=== PATIENT | male | born 1955 | race Caucasian/White ===

== ENCOUNTER 2017-03-08 17:12 | Emergency (ER) | payer OTHER ==
[~2017-03-08] VITALS: Ht 167.6 cm; Wt 80.0 kg
[~2017-03-08 17:12] MED LIST: AMLO10 PO; ASPI81 PO; ATOR40TA49 PO; CLON.2 PO; HYDR100T2 PO; MAGN400 PO; PRAS10; PREV15CA20 PO
[2017-03-08 17:15] VITALS: BP 178/85; PULSE 70; RESP 15; TEMP 98; O2SAT 100
[2017-03-08] MEDS ORDERED: SODIUM CHLOR 0.9% 1000 ML INJ 1,000 ML IV ONE ×2 (17:26→18:45)
[2017-03-08] MEDS ORDERED: THIAMINE INJ 100 MG in SODIUM CHLORIDE 0.9% INJ 100 ML IV ONE (17:30)
[2017-03-08] MEDS ORDERED: SODIUM CHLORIDE 0.9% FLUSH 10 ML FLUSH IVF PRN (17:30)
[2017-03-08] MEDS ORDERED: ONDANSETRON HCL 4 MG/2 ML VIAL IVP ONE (17:30)
--- NOTE | 2017-03-08 17:47 | PD ---
HPI Chief Complaint: Intoxicated/Syncope Time Seen by Provider: 17:26 Travel History International Travel<30 days: No Contact w/Intl Traveler<30days: No History of Present Illness HPI 61-year-old male brought in by EMS status post unwitnessed fall and possible syncopal event at his place of residence. Patient is intoxicated. He was sitting on the front stoop of his rental unit when he was found fallen forward with abrasions to the left elbow. Patient is obviously intoxicated but does respond to voice commands and questions, although he thinks the current president is Luis. He is complaining of no pain, headache, or head trauma. He has no neck pain. The only visible trauma is to the left lateral elbow which is abrasion. He has normal movement in all extremities. He has no known drug allergies. He has a history of MRSA. Vital signs were stable via EMS. PFS Past Medical History Arthritis: Yes Atrial Fibrillation: Yes Anxiety: Yes Depression: No Cancer: No Cardiovascular Problems: Yes Endocrine: No Genitourinary: No Hypertension: Yes Musculoskeletal: Yes Neurologic: Yes Psychiatric: No Reproductive: No Respiratory: No Myocardial Infarction: Yes Social History Alcohol Use: Yes (OCC) Tobacco Use: Yes (/2 PPD) Substance Use: No Allergies-Medications (Allergen,Severity, Reaction): Coded Allergies: No Known Allergies (Unverified , 03/08/17) Reported Meds & Prescriptions Reported Meds & Active Scripts Active No Active Prescriptions or Reported Medications Review of Systems ROS Limitations: Intoxication Except as stated in HPI: all other systems reviewed are Neg General / Constitutional: No: Fever Eyes: No: Visual changes HENT: No: Headaches Cardiovascular: No: Chest Pain or Discomfort Respiratory: No: Shortness of Breath Gastrointestinal: No: Abdominal Pain Genitourinary: No: Dysuria Musculoskeletal: No: Pain Skin: No Rash Neurologic: No: Weakness Psychiatric: No: Depression Endocrine: No: Polydipsia Hematologic/Lymphatic: No: Easy Bruising Physical Exam Exam Limitations: Intoxication Narrative GENERAL: Patient is in no acute distress. He is intoxicated but cooperative and arousable. SKIN: Warm and dry. Normal color. Normal turgor. Patient has superficial abrasion to the left lateral elbow. There are no other visible abrasions or wounds. HEAD: Atraumatic. Normocephalic. Nontender. EYES: Pupils equal and round. No scleral icterus. No injection or drainage. ENT: No nasal bleeding or discharge. Mucous membranes pink and moist. No acute dental injury is noted. Pharynx is clear. Airway is patent. NECK: Trachea midline. No bony tenderness or step-off. Range of motion is full and supple without tenderness. CARDIOVASCULAR: Regular rate and rhythm. No murmurs gallops or rubs. RESPIRATORY: No accessory muscle use. Clear to auscultation. Breath sounds equal bilaterally. GASTROINTESTINAL: Abdomen soft, non-tender, nondistended. Hepatic and splenic margins not palpable. MUSCULOSKELETAL: Extremities without clubbing, cyanosis, or edema. No obvious deformities. NEUROLOGICAL: Awake and alert. No obvious cranial nerve deficits. Motor grossly within normal limits. Five out of 5 muscle strength in the arms and legs. Normal speech. Data Data Last Documented VS Vital Signs Date Time Temp Pulse Resp B/P (MAP) Pulse Ox O2 Delivery O2 Flow Rate FiO2 03/08/17 19:05 60 18 167/82 (110) 96 Room Air 03/08/17 17:15 98.0 Orders Orders Complete Blood Count With Diff (03/08/17 17:26) Comprehensive Metabolic Panel (03/08/17 17:26) Electrocardiogram (03/08/17 17:26) Oximetry (03/08/17 17:26) Iv Access Insert/Monitor (03/08/17 17:26) Ecg Monitoring (03/08/17 17:26) Alcohol (Ethanol) (03/08/17 17:26) Chest, Single Ap (03/08/17 17:26) Ct Brain W/O Iv Contrast(Rout) (03/08/17 17:26) Ondansetron Inj (Zofran Inj) (03/08/17 17:30) Sodium Chloride 0.9% Flush (Ns Flush) (03/08/17 17:30) Sodium Chlor 0.9% 1000 Ml Inj (Ns 1000 M (03/08/17 17:26) Thiamine Inj (Thiamine Inj) (03/08/17 17:30) Sodium Chlor 0.9% 1000 Ml Inj (Ns 1000 M (03/08/17 18:45) Potassium Chlor 20 Meq Premix (Kcl 20 Me (03/08/17 18:45) Labs Laboratory Tests Test 9/7/17 17:30 White Blood Count 4.8 TH/MM3 Red Blood Count 3.74 MIL/MM3 Hemoglobin 12.7 GM/DL Hematocrit 37.4 % Mean Corpuscular Volume 99.9 FL Mean Corpuscular Hemoglobin 34.0 PG Mean Corpuscular Hemoglobin Concent 34.0 % Red Cell Distribution Width 12.9 % Platelet Count 98 TH/MM3 Mean Platelet Volume 8.9 FL Neutrophils (%) (Auto) 46.1 % Lymphocytes (%) (Auto) 37.7 % Monocytes (%) (Auto) 11.7 % Eosinophils (%) (Auto) 3.9 % Basophils (%) (Auto) 0.6 % Neutrophils # (Auto) 2.2 TH/MM3 Lymphocytes # (Auto) 1.8 TH/MM3 Monocytes # (Auto) 0.6 TH/MM3 Eosinophils # (Auto) 0.2 TH/MM3 Basophils # (Auto) 0.0 TH/MM3 CBC Comment AUTO DIFF Differential Comment AUTO DIFF CONFIRMED Platelet Estimate LOW Platelet Morphology Comment NORMAL Blood Urea Nitrogen 17 MG/DL Creatinine 1.32 MG/DL Random Glucose 96 MG/DL Total Protein 6.8 GM/DL Albumin 3.7 GM/DL Calcium Level 7.5 MG/DL Alkaline Phosphatase 110 U/L Aspartate Amino Transf (AST/SGOT) 142 U/L Alanine Aminotransferase (ALT/SGPT) 58 U/L Total Bilirubin 0.2 MG/DL Sodium Level 144 MEQ/L Potassium Level 3.3 MEQ/L Chloride Level 109 MEQ/L Carbon Dioxide Level 25.2 MEQ/L Anion Gap 10 MEQ/L Estimat Glomerular Filtration Rate 55 ML/MIN Ethyl Alcohol Level 401 MG/DL [facility] Medical Decision Making Medical Screen Exam Complete: Yes Emergency Medical Condition: Yes Differential Diagnosis Acute intoxication. Unwitnessed possible syncopal episode. Fall. Left elbow abrasion. Narrative Course Patient appears medically stable at time of exam. Labs ordered including CBC, CMP, serum alcohol level. EKG and chest x-ray is ordered. CT of the head is ordered. IV access is obtained patient is given milligrams thiamine IV, 4 mg Zofran IV, and 1000 mL's normal saline bolus. Chest x-ray is normal. EKG shows normal sinus rhythm with atrial enlargement. No acute ST changes. This was reviewed with Dr. Santos. CBC shows a hemoglobin of 12.7, hematocrit of 37.4. CMP shows sodium 144, potassium 3.3Y9. Creatinine is 1.32, BUN 17 patient has an AST of 142, ALT of 58. Serum alcohol level is 401. Head CT is negative. Patient is intoxicated but medically stable. Patient discharged to the custody of his . Diagnosis Primary Impression: Alcohol intoxication Qualified Codes: F10.920 - Alcohol use, unspecified with intoxication, uncomplicated Additional Impression: Elbow abrasion Qualified Codes: S50.312A - Abrasion of left elbow, initial encounter Referrals: [facility] (Out patient) [facility] Patient Instructions: Abuse of Alcohol (ED), General Instructions Med/Other Pt SpecificInfo: Wound Care Scripts No Active Prescriptions or Reported Meds Disposition: 01 DISCHARGE HOME Condition: Stable [place] Spaulding Mar 08, 2017 17:47
--- NOTE | 2017-03-08 17:51 | RADRPT ---
EXAM DATE/TIME: 03/08/2017 17:40 [facility] COMPARISON: CHEST PA & LAT, March 19, 2015, 12:48. INDICATIONS : Syncope MEDICAL HISTORY : None. SURGICAL HISTORY : None. ENCOUNTER: Initial ACUITY: 4 - 6 days PAIN SCORE: 0/10 LOCATION: chest FINDINGS: The lungs are clear without infiltrate, nodule, or mass. There is no appreciable pleural effusion fo r technique. Heart and mediastinum are unremarkable. There are atherosclerotic calcifications of the aorta due to chronic atherosclerotic disease. CONCLUSION: No acute cardiopulmonary disease. Maral Hilton MD on March 08, 2017 at 17:48 Board Certified Radiologist. This report was verified electronically.
[2017-03-08 17:56] VITALS: BP 169/81; PULSE 62; PULSE 65; RESP 15; O2SAT 100
[2017-03-08 18:09] LABS: ALT (GPT) 58 U/L (12-78); ANION GAP 10 MEQ/L (5-15); AST (GOT) 142 U/L (15-37); BICARBONATE 25.2 MEQ/L (21.0-32.0); BLOOD UREA NITROGEN 17 MG/DL (7-18); CHLORIDE 109 MEQ/L (98-107); GLOMERULAR FILTRATION RATE 55 ML/MIN (>89); POTASSIUM 3.3 MEQ/L (3.5-5.1); SODIUM (NA) 144 MEQ/L (136-145)
[2017-03-08 18:10] LABS: AUTOMATED NEUTROPHIL # 2.2 TH/MM3 (1.8-7.7); BASOPHIL % 0.6 % (0.0-2.0); EOSINOPHIL # 0.2 TH/MM3 (0-0.4); EOSINOPHIL % 3.9 % (0.0-4.0); HEMATOCRIT 37.4 % (39.0-51.0); LYMPH % 37.7 % (9.0-44.0); LYMPHOCYTE # 1.8 TH/MM3 (1.0-4.8); MEAN CELL VOLUME 99.9 FL (80.0-100.0); MONO % 11.7 % (0.0-8.0); NEUT % 46.1 % (16.0-70.0); PLATELET COUNT 98 TH/MM3 (150-450); RED BLOOD COUNT 3.74 MIL/MM3 (4.50-5.90); RED CELL DISTRIBUTION WIDTH 12.9 % (11.6-17.2); WHITE BLOOD COUNT 4.8 TH/MM3 (4.0-11.0)
[2017-03-08 18:14] LABS: ALKALINE PHOSPHATASE 110 U/L (45-117); TOTAL BILIRUBIN ADULT 0.2 MG/DL (0.2-1.0)
[2017-03-08 18:15] LABS: ALCOHOL 401 MG/DL (0-5)
[2017-03-08 18:37] LABS: HEMO FLAGS AUTO DIFF; PLATELET ESTIMATE SMEAR LOW (NORMAL); PLATELET MORPHOLOGY NORMAL (NORMAL); SCAN/DIFF AUTO DIFF CONFIRMED
[2017-03-08] MEDS ORDERED: POTASSIUM CHLOR 20 MEQ PREMIX 100 ML IV ONE (18:45)
[2017-03-08 19:05] VITALS: BP 167/82; PULSE 60; RESP 18; O2SAT 96
--- NOTE | 2017-03-08 19:23 | RADRPT ---
EXAM DATE/TIME: 03/08/2017 18:44 [facility] COMPARISON: CT BRAIN W/O CONTRAST, February 18, 2015, 12:22. INDICATIONS : Altered mental status. RADIATION DOSE: 56.35 CTDIvol (mGy) MEDICAL HISTORY : Cardiovascular disease. Hypertension. A-fib SURGICAL HISTORY : None. ENCOUNTER: Initial ACUITY: 1 day PAIN SCALE: 0/10 LOCATION: cranial TECHNIQUE: Multiple contiguous axial images were obtained of the head. Using automated exposure control and adj ustment of the mA and/or kV according to patient size, radiation dose was kept as low as reasonably a chievable to obtain optimal diagnostic quality images. DICOM format image data is available electro nically for review and comparison. FINDINGS: CEREBRUM: The ventricles are normal for age. Minimal cortical atrophy. No evidence of midline shift, mass lesi on, hemorrhage or acute infarction. No extra-axial fluid collections are seen. POSTERIOR FOSSA: The cerebellum and brainstem are intact. The 4th ventricle is midline. The cerebellopontine angle i s unremarkable. EXTRACRANIAL: The visualized portion of the orbits is intact. SKULL: The calvaria is intact. No evidence of skull fracture. CONCLUSION: 1. Minimal chronic changes. 2. No acute. Duong Doss MD on March 08, 2017 at 19:20 Board Certified Radiologist. This report was verified electronically.
--- NOTE | 2017-03-09 11:45 | EKG ---
Date Performed: 03/08/2017 Time Performed: 17:31:05 PTAGE: 61 years EKG: Sinus rhythm POSSIBLE LEFT ATRIAL ENLARGEMENT LEFT VENTRICULAR HYPERTROPHY AND ST-T CHANGE ABNORMAL ECG NO PREVIOUS TRACING DOCTOR: Abelino Copeland Interpretating Date/Time 03/09/2017 11:43:53
== END 2017-03-08 21:50 | disposition home or self-care (01) ==
LOC: NEPC 17:12
DX: F10.920 Alcohol use, unspecified with intoxication, uncomplicated (principal); S50.312A Abrasion of left elbow, initial encounter; W19.XXXA Unspecified fall, initial encounter; Y90.8 Blood alcohol level of 240 mg/100 ml or more
CPT/HCPCS: 70450; 71010; 80053; 80307; 85025; 93005; 96365; 96366; 96367; 96375; 99285; J2405; J3411; J3480; J7030